=== PATIENT | male | born 1945 | race Caucasian/White ===

== ENCOUNTER 2016-10-22 06:46 | Inpatient (IN) | payer OTHER ==
[~2016-10-22] VITALS: Ht 170.2 cm; Wt 61.2 kg
[~2016-10-22 06:46] MED LIST: AMOXICILLIN250 MG PO
--- NOTE | 2016-10-22 07:02 | ED AMS/SEIZURE/WEAK/DIZZY ---
History of Present Illness General Chief Complaint: Altered Mental Status Stated Complaint: BIBA AMS Source: family, EMS Exam Limitations: clinical condition Vital Signs & Intake/Output Vital Signs & Intake/Output Vital Signs Date Time Temp Pulse Resp B/P Pulse O2 O2 Flow FiO2 Ox Delivery Rate 10/22 0830 97.5 81 20 148/78 99 Room Air 10/22 0658 97.1 79 20 158/71 100 Room Air Allergies Coded Allergies: NO KNOWN ALLERGIES (07/08/15) Reconcile Medications Acyclovir 400 MG TABLET 1 TAB PO BID ANTIVIRAL (Reported) Amlodipine Besylate 10 MG TABLET 1 TAB PO DAILY HEART (Reported) Atenolol 25 MG TABLET 1 TAB PO DAILY HEART (Reported) Fluconazole (Diflucan) 200 MG TABLET 1 TAB PO DAILY ANTIFUNGAL (Reported) Furosemide 20 MG TABLET 1 TAB PO BID WATER PILL (Reported) Lenalidomide (Revlimid) 10 MG CAPSULE 1 CAP PO DAILY Cancer (Reported) Lorazepam (Ativan) 0.5 MG TABLET 1 TAB PO Q8 PRN Agitation Metformin HCl 500 MG TABLET 1 TAB PO BID DIABETES (Reported) Sulfamethoxazole/Trimethoprim (Sulfamethoxazole-Tmp Ds Tablet) 800 MG-160 MG TABLET 1 TAB PO Monday UNKNOWN (Reported) Triage Nurses Notes Reviewed? yes Onset: Gradual Duration: day(s): (5) Timing: recent history Injury Environment: home Severity: severe No Modifying Factors: none Associated Symptoms: UNABLE TO PERFORM ADL'S HPI: This is a 70-year-old male with history of hypertension, multiple myeloma, previous mouth cancer who presents with family from home via EMS for chief complaint of altered mental status. According to the son and he was admitted to the hospital last Monday for very low blood counts and transfusion. He received 2 units of blood. At that time he then developed congestive heart failure and was treated for CHF with diuretics. reports that he had lack of oxygen for a while. He was discharged home on since his discharge home less than 2 days ago there is been an acute change in his mental status. He is unable to take care of himself. He has not been eating and drinking. He is unable to communicate what he normally does. In retrospect the thinks that something slow may have started last week. He was more lethargic than usual which was abnormal for him. No fevers or chills. No vomiting or diarrhea. No rashes. No change in his previous medications but he was started on a diuretic at discharge. Past History Travel History Traveled to [place] past 21 day No Medical History Any Pertinent Medical History? see below for history Cardiovascular: hypertension Blood Disorders: multiple myeloma Surgical History Surgical History: he had removal of part of the upper jaw on the rightdue to malignancy Psychosocial History What is your primary language Bahraini Family History Hx Contributory? No Review of Systems Review of Systems Constitutional: Reports: malaise, weakness. EENTM: Reports: no symptoms. Respiratory: Denies: cough, short of breath. Cardiovascular: Denies: chest pain, palpitations. GI: Denies: abdominal pain. Genitourinary: Reports: no symptoms. Musculoskeletal: Reports: no symptoms. Skin: Reports: no symptoms. Neurological/Psychological: Reports: no symptoms. Hematologic/Endocrine: Denies: bruising, bleeding, polyuria, polydipsia. Immunologic/Allergic: Denies: splenectomy. All Other Systems: Reviewed and Negative Physical Exam Physical Exam General Appearance: alert, awake, mild distress, thin Head: atraumatic, normal appearance Eyes: Bilateral: normal appearance, PERRL, EOMI. Ears, Nose, Throat: normal pharynx, hearing grossly normal Neck: normal inspection, supple, full range of motion Respiratory: normal breath sounds, chest non-tender, no respiratory distress Cardiovascular: regular rate/rhythm Peripheral Pulses: 2+ radial (R), 2+ radial (L) Gastrointestinal: normal bowel sounds, soft, non-tender Extremities: normal range of motion Neurologic/Psych: no motor/sensory deficits, awake, alert, oriented x 3 Core Measures ACS in differential dx? No CVA/TIA Diagnosis: No Severe Sepsis Present: No Septic Shock Present: No Progress Differential Diagnosis: CVA/stroke, hypoglycemia, hypoxia, intracranial Hem., intracranial mass/tumor, sepsis, seizure disorder, METABOLIC ENCEPHALOPATHY Plan of Care: Orders Procedure Date/time Status Heart Healthy Diet 10/22 L Active Patient Data 10/22 1051 Active LACTIC ACID 10/22 1027 Complete MRA-HEAD 10/22 858 Active MRI-HEAD W & W/O BRANDT 10/22 858 Active Admit to inpatient 10/22 847 Active Vital Signs 10/22 0748 Active Code Status 10/22 847 Active PARTIAL THROMBOPLASTIN TIME 10/22 726 Complete PROTHROMBIN TIME 10/22 726 Complete LACTIC ACID 10/22 726 Active URINE DRUGS OF ABUSE 10/22 723 Complete Telemetry/Worm Sorter 10/22 721 Active AMMONIA 10/22 721 Complete URINALYSIS 10/22 700 Complete TROPONIN LEVEL 10/22 700 Complete COMPREHENSIVE METABOLIC PANEL 10/22 700 Complete CBC WITHOUT DIFFERENTIAL 10/22 700 Complete EKG 10/22 700 Active Laboratory Tests 10/22/16 0910: Urine Opiates Screen < 100.00, Methadone Screen < 40, Barbiturate Screen < 60, Ur Phencyclidine Scrn < 6.00, Amphetamines Screen < 100, U Benzodiazepines Scrn < 85, Urine Cocaine Screen < 50, Urine Cannabis Screen < 5.00 10/22/16 0909: Urine Color YEL, Urine Clarity CLEAR, Urine pH 6.0, Ur Specific [place] 1.025, Urine Protein NEG, Urine Ketones TRACE H, Urine Nitrite NEG, Urine Bilirubin NEG, Urine Urobilinogen 0.2, Ur Leukocyte Esterase NEG, Ur Microscopic EXAM NOT REQUIRED, Urine Hemoglobin NEG, Urine Glucose NEG 10/22/16 0808: Lactic Acid 1.0 10/22/16 0808: Ammonia < 9 L, PT 13.7 H, INR 1.31 H, APTT 24 L 10/22/16 0716: Anion Gap 22 H, Estimated GFR > 60, BUN/Creatinine Ratio 52.5 H, Glucose 137 H, Calcium 9.0, Total Bilirubin 0.9, AST 40, ALT 176 H, Alkaline Phosphatase 65 , Troponin I 0.06, Total Protein 8.4 H, Albumin 3.2 L, Globulin 5.2 H, Albumin/Globulin Ratio 0.6 L, CBC w Diff MAN DIFF ORDERED, RBC 2.49 L, MCV 95.4 H, MCH 33.0 H, RDW 23.0 H, MPV 8.3, Gran % 56.1, Lymphocytes % 23.5, Monocytes % 16.5 H, Eosinophils % 3.4, Basophils % 0.5, Absolute Granulocytes 1.0 L, Segmented Neutrophils 55, Band Neutrophils 2, Absolute Lymphocytes 0.4 L, Lymphocytes 33, Monocytes 8, Absolute Monocytes 0.3, Absolute Eosinophils 0.1 , Absolute Basophils 0, Metamyelocytes 2 H, Nucleated RBCs 2 H, Platelet Estimate , Hypochromic-Microcytic 2+, Poikilocytosis 2+, Anisocytosis 1+, PUBS MCHC 34.6 10 AM D/W DR MCKINNEY - WILL CONSULT ON THE PATIENT. (LEONIE MONSIVAIS,VIN) Diagnostic Imaging: Viewed by Me: Radiology Read, CT Scan. Discussed w/RAD: Radiology Read, CT Scan. Radiology Impression: EXAM TYPE: CAT - CT HEAD WO IV CONTRAST EXAMINATION: CT HEAD WITHOUT CONTRAST CLINICAL INFORMATION: Altered mental status COMPARISON: None. TECHNIQUE: Contiguous axial imaging was performed from the skull base to vertex without intravenous administration of contrast. DLP: 529 mGy-cm. FINDINGS : There is no evidence of acute intracranial hemorrhage or territorial infarction. No abnormal mass effect or midline shift is seen. Sherman to white matter differentiation is well preserved. No extra-axial fluid collections are identified. The ventricles are top normal in size. Sulci and cisterns are normal in appearance. There is no abnormal attenuation within the brain parenchyma. The osseous structures and soft tissues are normal. The mastoid air cells and visualized portions of the paranasal sinuses are well aerated. IMPRESSION: No acute intracranial abnormality. CXR Impression: EXAM TYPE: RAD - XRY-PORTABLE CHEST XRAY EXAMINATION: XR PORTABLE CHEST CLINICAL INFORMATION: Question CHF COMPARISON: Chest x-ray from 11/10/2013 TECHNIQUE: Portable view of the chest was obtained. FINDINGS: Heart size is normal. The aorta is normal in caliber and partially calcified. Pulmonary vascularity is normal. The lungs are normally expanded. There is slight increase in opacity at the left lung apex when compared to the previous examination. Some of this is related to overlapping bony structures and calcified costal cartilage. An underlying small area of atelectasis or infiltrate in the left upper lobe would be difficult to exclude. Opacity over the right first costochondral junction is unchanged from prior exam and is likely related to calcified cartilage and overlapping bony structures. No other questionable focal findings are seen in the lungs. There is no pleural effusion or pneumothorax. No acute bony abnormality is seen. IMPRESSION: Normally expanded lungs with no pulmonary edema. Slight increase in opacity at the left lung apex when compared to prior study may be artifactual, related to overlapping bony structures and costal cartilage, but a small infiltrate in the left upper lobe would be difficult to exclude. No other change.. Initial ED EKG: NSR, LVH Rhythm Strip: normal sinus rhythm, SHAKY BASELINE DUE TO FIDGETING Departure Departure Time of Disposition: 0848 Disposition: STILL A PATIENT Condition: Stable Clinical Impression Primary Impression: Altered mental status Referrals: JOSE RAMON MONSIVAIS,AVANI (PCP/Family) Departure Forms: Customer Survey General Discharge Information Prescriptions: Current Visit Scripts Lorazepam (Ativan) 1 TAB PO Q8 PRN Agitation #10 TAB Admission Note Spoke With: YESENIA MONSIVAIS,VICKY Documentation of Exam: Documentation of any treatments & extenuating circumstances including Concerns Regarding Discharge (functional status, medication knowledge or non-compliance, living conditions, etc.) that warrant an admission rather than observation: [ TELE MONITOR, NEURO EVALUATION, MRI HEAD, MRA HEAD, MONITOR I/O, GENTLE IV HYDRATION]
--- NOTE | 2016-10-22 07:04 | NUR ---
PT BIBA FROM HOME C/O AMS CHANGE. PER MEDIC/PTS FAMILY PT WAS D/C'D FROM 2 DAYS AGO WHERE HE WAS ADMITTED FOR CHF AND SOB. PT HAS EXTENSIVE HX OF MYELOMA CA. PT HAS A HEAVY CYPRIOT ACCENT, BUT FAMILY SAYS PTS VOICE IS BASELINE FOR HIM. PTS FAMILY STATED THAT HE WAS CONFUSED AND NORMALLY IS INDEPENDENT AT THE HOUSE AND THE PAST 2 DAYS HAS BEEN DOING THINGS "OUT OF THE ORDINARY SUCH TRYING TO UNZIPPER HIS UNDERWEAR". UPON ARRIVAL PTS VSS RA 100% BP 159/71 AND HR 79. PTS AND SON IN RM STANDING OVER PT IN THE BED WATCHING THE MONITOR IN THE RM. PT HOOKED UP THE MONITOR AND RESPONDED APPRORIATELY TO THIS RN'S QUESTIONS. PT LAYING FIDDLING WITH GOWN, UNABLE TO TRY AND KEEP LEADS ON, THIS RN GAVE PT ANOTHER GOWN TO BUTTON AND UNBUTTON TO DISTRACT THE PT. AWAITING PROVIDER EVAL. MEDIC UNABLE TO GET IV ACCESS. PTS AT BEDSIDE ASKING "SHOULD HE GO TO [place] BECAUSE THATS WHERE HIS ONCOLOGIST IS"
--- NOTE | 2016-10-22 07:19 | NUR ---
ASSUMED CARE OF PT. LBS DRAWN AND SENT. DR HADLEY AT BEDSIDE FOR EVALUATION
[2016-10-22 07:47] LABS: ABSOLUTE BASOPHIL COUNT 0 /CUMM (0.0-0.2); ABSOLUTE EOSINOPHIL COUNT 0.1 /CUMM (0.0-0.7); ABSOLUTE LYMPH COUNT 0.4 /CUMM (1.2-3.4); ABSOLUTE MONOCYTE COUNT 0.3 /CUMM (0.10-0.60); BASOPHIL % 0.5 % (0.0-2.0); EOSINOPHIL % 3.4 % (0-5); GRANULOCYTE % 56.1 % (42.2-75.2); HEMATOCRIT 23.8 % (42-52); MEAN CORPUSCULAR HGB CONC 34.6 G/DL (33.0-37.0); MEAN CORPUSCULAR VOLUME 95.4 FL (80.0-94.0); MEAN PLATELET VOLUME 8.3 FL (7.4-10.4); RED BLOOD CELL CT 2.49 /CUMM (4.70-6.10); WHITE BLOOD CELL COUNT 1.7 /CUMM (4.8-10.8)
--- NOTE | 2016-10-22 07:48 | NUR ---
PT TO CT SCAN AND XRAY
[2016-10-22] MEDS ORDERED: FUROSEMIDE20 M1 PO (08:04)
[2016-10-22 08:05] LABS: PLATELET COUNT 32 /CUMM (130-400)
[2016-10-22] MEDS ORDERED: REVLIMID10 M1 PO (08:05)
[2016-10-22] MEDS ORDERED: ATENOLOL25 M1 PO (08:06)
[2016-10-22] MEDS ORDERED: AMLODIPINE BESY10 M1 PO (08:06)
[2016-10-22] MEDS ORDERED: SULFAMETHOXAZO1 EAC1 PO (08:07)
[2016-10-22] MEDS ORDERED: ACYCLOVIR400 M1 PO (08:08)
[2016-10-22] MEDS ORDERED: METFORMIN HCL500 M3 PO (08:08)
[2016-10-22] MEDS ORDERED: DIFLUCAN200 M1 PO (08:08)
--- NOTE | 2016-10-22 08:12 | CT SCAN REPORT ---
EXAMINATION: CT HEAD WITHOUT CONTRAST CLINICAL INFORMATION: Altered mental status COMPARISON: None. TECHNIQUE: Contiguous axial imaging was performed from the skull base to vertex without intravenous administration of contrast. DLP: 529 mGy-cm. FINDINGS: There is no evidence of acute intracranial hemorrhage or territorial infarction. No abnormal mass effect or midline shift is seen. Sherman to white matter differentiation is well preserved. No extra-axial fluid collections are identified. The ventricles are top normal in size. Sulci and cisterns are normal in appearance. There is no abnormal attenuation within the brain parenchyma. The osseous structures and soft tissues are normal. The mastoid air cells and visualized portions of the paranasal sinuses are well aerated. IMPRESSION: No acute intracranial abnormality.
--- NOTE | 2016-10-22 08:17 | NUR ---
NS INFUSING. PT CONTINUES TO FIDGIT. GIVEN A GOWN WITH SNAPS TO DISTRACT
[2016-10-22 08:27] LABS: PT 13.7 SEC (9.4-12.5); PTT 24 SEC (25-37)
--- NOTE | 2016-10-22 08:40 | RADIOLOGY REPORT ---
EXAMINATION: XR PORTABLE CHEST CLINICAL INFORMATION: Question CHF COMPARISON: Chest x-ray from 11/10/2013 TECHNIQUE: Portable view of the chest was obtained. FINDINGS: Heart size is normal. The aorta is normal in caliber and partially calcified. Pulmonary vascularity is normal. The lungs are normally expanded. There is slight increase in opacity at the left lung apex when compared to the previous examination. Some of this is related to overlapping bony structures and calcified costal cartilage. An underlying small area of atelectasis or infiltrate in the left upper lobe would be difficult to exclude. Opacity over the right first costochondral junction is unchanged from prior exam and is likely related to calcified cartilage and overlapping bony structures. No other questionable focal findings are seen in the lungs. There is no pleural effusion or pneumothorax. No acute bony abnormality is seen. IMPRESSION: Normally expanded lungs with no pulmonary edema. Slight increase in opacity at the left lung apex when compared to prior study may be artifactual, related to overlapping bony structures and costal cartilage, but a small infiltrate in the left upper lobe would be difficult to exclude. No other change..
--- NOTE | 2016-10-22 09:10 | NUR ---
URINE SPECIMEN SENT TO LAB
--- NOTE | 2016-10-22 09:39 | NUR ---
NS INFUSING AT 150/HR
--- NOTE | 2016-10-22 10:35 | NUR ---
TELE RESIDENT AT BEDSIDE FOR EVALUATION
--- NOTE | 2016-10-22 10:58 | NUR ---
PATIENT ASSIGNED TO TELE BED [id number]
--- NOTE | 2016-10-22 11:01 | NUR ---
ATIVAN ADMINISTERED ORDERED.
--- NOTE | 2016-10-22 11:25 | NUR ---
PT TO MRI
--- NOTE | 2016-10-22 11:37 | History & Physical ---
SCOTT MONSIVAIS,[facility] 10/22/16 1104: General Information and HPI MD Statement: I have seen and personally examined MAT CARRENO and documented this H&P. The patient is a 70 year old M who presented with a patient stated chief complaint of [Confusion]. Source of Information: patient, family, old records Exam Limitations: clinical condition, confusion History of Present Illness: Patient is a 70-year-old man with a past medical history of hypertension, ? steroid induced diabetes, multiple myeloma initially diagnosed in 2011 and treated with multiple chemotherapeutic agents status post-autologous stem cell transplant in 08/2012, now on DARLYN (Cyclophosphamide, etoposide, dexamethasone) chemotherapy C1D12 on XAVIER CD22 plus rev 10 mg. His oncologist is Dr. George at [facility]. He presents with lethargy of 12 days duration and confusion 4 days duration. His symptoms started 12 days ago when he was noted to be progressively lethargic. He was found to be anemic and hypoxemic and desaturated to the 70s when he presented to his oncologist for chemotherapy 4 days ago. On account of this he was transferred to [facility] emergency department where he was admitted and transfused with 2 units of blood. He was found to be in congestive heart failure with bilateral pulmonary edema and he was diuresed. Echocardiogram done showed ejection fraction of 60-65% with moderate diastolic dysfunction. However his confusion started 4 days ago during his [facility] admission and gradually worsened after his discharge 2 days ago (, ). Now his family states that he is very confused as evidenced by his behaviours. Overnight he was opening all the drawers in his house and wandering around his house. He also tried to put his glasses into his wallet. He is speaking minimally and not able to carry on conversations as he normally does. He also is unable to operate his computer. However, he does not have slurred speech. He denies headaches, weakness of any part of his body or any facial asymmetry. He denies fevers, chills, dysuria. He has not been eating or drinking much over the last 24 hours. He denies diarrhea. Allergies/Medications Allergies: Coded Allergies: NO KNOWN ALLERGIES (07/08/15) Home Med list Acyclovir 400 MG TABLET 1 TAB PO BID ANTIVIRAL (Reported) Amlodipine Besylate 10 MG TABLET 1 TAB PO DAILY HEART (Reported) Atenolol 25 MG TABLET 1 TAB PO DAILY HEART (Reported) Fluconazole (Diflucan) 200 MG TABLET 1 TAB PO DAILY ANTIFUNGAL (Reported) Furosemide 20 MG TABLET 1 TAB PO QPM WATER PILL (Reported) Lenalidomide (Revlimid) 10 MG CAPSULE 1 CAP PO DAILY UNKNOWN (Reported) Metformin HCl 500 MG TABLET 1 TAB PO BID DIABETES (Reported) Sulfamethoxazole/Trimethoprim (Sulfamethoxazole-Tmp Ds Tablet) 800 MG-160 MG TABLET 1 TAB PO Monday UNKNOWN (Reported) Past History Travel History Traveled to [place] past 21 day No Medical History Cardiovascular: hypertension Endocrine: diabetes Blood Disorders: multiple myeloma Surgical History Surgical History: he had removal of part of the upper jaw on the rightdue to malignancy Past Family/Social History Family History Relations & Conditions if any SISTER FHx: heart disease Psychosocial History Where do you live? Home Smoking Status: Former Smoker ETOH Use: denies use Illicit Drug Use: denies illicit drug use Functional Ability ADLs Independent: dressing, eating, toileting, bathing. Review of Systems Review of Systems Constitutional: Reports: see HPI. Denies: chills, fever, malaise. Exam & Diagnostic Data Last 24 Hrs of Vital Signs/I&O Vital Signs Date Time Temp Pulse Resp B/P Pulse O2 O2 Flow FiO2 Ox Delivery Rate 10/22 0830 97.5 81 20 148/78 99 Room Air 10/22 0658 97.1 79 20 158/71 100 Room Air Intake & Output 10/22 1600 10/22 0800 10/22 0000 Intake Total 500 Output Total 150 Balance 350 Intake, IV 500 Output, Urine 150 Patient 120 lb Weight Physical Exam General Appearance Alert, No Acute Distress, oriented to person but not to time or place Skin No Rashes, No Breakdown HEENT PERRLA, EOMI Neck Supple, No JVD Lymphatic Cervical nl Cardiovascular Regular Rate, Normal S1, Normal S2, No Murmurs Lungs Clear to Auscultation, Normal Air Movement Abdomen Normal Bowel Sounds, Soft, No Tenderness, No Hepatospenomegaly Neurological Normal Gait, Normal Speech, Strength at 5/5 X4 Ext, Normal Tone, Sensation Intact, Cranial Nerves 3-12 NL, Reflexes 2+, Neck supple. Extremities +1 pedal edema Vascular Normal Pulses Last 24 Hrs of Labs/Uriah: Laboratory Tests 10/22/16 0910: Urine Opiates Screen < 100.00, Methadone Screen < 40, Barbiturate Screen < 60, Ur Phencyclidine Scrn < 6.00, Amphetamines Screen < 100, U Benzodiazepines Scrn < 85, Urine Cocaine Screen < 50, Urine Cannabis Screen < 5.00 10/22/16 0909: Urine Color YEL, Urine Clarity CLEAR, Urine pH 6.0, Ur Specific Bennett 1.025, Urine Protein NEG, Urine Ketones TRACE H, Urine Nitrite NEG, Urine Bilirubin NEG, Urine Urobilinogen 0.2, Ur Leukocyte Esterase NEG, Ur Microscopic EXAM NOT REQUIRED, Urine Hemoglobin NEG, Urine Glucose NEG 10/22/16 0808: Lactic Acid 1.0 10/22/16 0808: Ammonia < 9 L, PT 13.7 H, INR 1.31 H, APTT 24 L 10/22/16 0716: Anion Gap 22 H, Estimated GFR > 60, BUN/Creatinine Ratio 52.5 H, Glucose 137 H, Calcium 9.0, Total Bilirubin 0.9, AST 40, ALT 176 H, Alkaline Phosphatase 65 , Troponin I 0.06, Total Protein 8.4 H, Albumin 3.2 L, Globulin 5.2 H, Albumin/Globulin Ratio 0.6 L, CBC w Diff MAN DIFF ORDERED, RBC 2.49 L, MCV 95.4 H, MCH 33.0 H, RDW 23.0 H, MPV 8.3, Gran % 56.1, Lymphocytes % 23.5, Monocytes % 16.5 H, Eosinophils % 3.4, Basophils % 0.5, Absolute Granulocytes 1.0 L, Segmented Neutrophils 55, Band Neutrophils 2, Absolute Lymphocytes 0.4 L, Lymphocytes 33, Monocytes 8, Absolute Monocytes 0.3, Absolute Eosinophils 0.1 , Absolute Basophils 0, Metamyelocytes 2 H, Nucleated RBCs 2 H, Platelet Estimate , Hypochromic-Microcytic 2+, Poikilocytosis 2+, Anisocytosis 1+, PUBS MCHC 34.6 Diagnostic Data EKG Results HR 74 bpm, QTC 520, LVH CXR Results Normally expanded lungs with no pulmonary edema. 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 He has a prior history of mild confusion over the past year which was attributed to his chemotherapy regimen. But his current symptoms are concerning for a hypoxic, or metabolic encephalopathy, or delirium related to his recent [facility] admission. Due to his immunosuppression, encephalitis from HSV is also a possibility as he is unlikely to manifest high fevers or a white count. However, as he is on a prophylactic antibiotic regimen (Acyclovir, fluconazole and bactrim) , a subtle intracranial infarct or stroke is more likely and will need to be ruled out. His hemoglobin is 8.2 which is stable and improved when compared to 5.7 from 4 days ago. His ANC is 1000 but he is afebrile. His chemistries unremarkable and is ALT of 176 is down trending from 258 4 days ago. His urinalysis is benign. And a toxicology screen is negative. EKG showed left ventricular hypertrophy and prolonged QTC but no other abnormalities. His current head CT head is negative any hemorrhage or lesion. Of note, echocardiogram done on his admission at [facility] showed EF of 60-65% with moderate diastolic dysfunction. He will be admitted and hydrated as he is not taking fluid or food adequately orally. Neurology consult will be obtained and he will be monitored on telemetry. Problem list 1. Altered mental status ? Metabolic vs delirum vs subtle cerebral infarct * Admit to telemetry * Patient passed a bedside swallow evaluation * MRI brain and MRA head to investigate subtle infarct or intracranial lesion * Neurology consult * If MRI and MRA are unrevealing may consider lumbar puncture and CSF analkysis/ viral studies to rule out encephalitis * IV normal saline at 75cc/hr * Melatonin 5 mg at bedtime for sleep * IM haldol 0.5 mg Q12 hrs PRN for agitation * Avoid NSAIDS due to low platelets of 32,000 * Fasting lipid panel * PT consult tomorrow AM 2. Neutropenia secondary to multiple myeloma * As patient is currently afebrile, we will monitor vital signs closely for fevers * Monitor CBC daily * Blood culture X2 * Will hold his multiple myeloma medications for now * Continue prophylactic antibiotic regimen-Acyclovir, fluconazole and bactrim 3. Anemia * Monitor CBC daily 4. Diabetes Mellitus * NovoLog sliding scale low-dose 3 times a day before meals * Accu-Cheks 3 times a day before meals 5. Recent history of congestive heart failure * Will monitor on telemetry * Hydrate gently and monitor vital signs and oxygen saturations closely * Once he is eating adequately can discontinue IV fluids * Continue PO lasix 20 mg QPM 6. DVT prophylaxis * Subcutaneous Lovenox 40 mg daily 7. CODE STATUS * full code As Ranked By This Provider Problem List: 1. Altered mental status 2. Multiple myeloma 3. Anemia 4. Diabetes mellitus 5. DVT prophylaxis 6. Full code status Core Measures/Miscellaneous Acute Coronary Syndrome ACS Diagnosis: No Cerebrovascular Accident CVA/TIA Diagnosis: No Congestive Heart Failure CHF Diagnosis: No Venous Thromboembolism VTE Risk Factors: Acute medical illness, Age > 40 VTE Prophylaxis Ordered Inpt: Pharm- Lovenox No Mech VTE prophylaxis d/t: No contraindications No VTE Pharm Prophylaxis d/t: No contraindications VTE Diagnosis: No VTE Type: NONE VTE Confirmed by (Test): NONE Severe Sepsis Severe Sepsis Present: No Septic Shock Septic Shock Present: No Miscellaneous Documentation Attending Case Discussed With: VICKY PATTERSON MD Primary Care Physician: AVANI ALBRIGHT MD Patient sees these Specialists Dr. George, oncology [facility] Level of Patient Care: Telemetry Resident Review Statement Resident Statement: examined this patient, discussed with family VICKY PATTERSON MD 10/22/16 1306: Attending MD Review Statement Attending Statement Attending MD Statement: examined this patient, discuss w/resident/PA/TUGBOAT CAPTAIN, agreed w/resident/PA/TUGBOAT CAPTAIN, discussed with family, reviewed EMR data (avail) Attending Assessment/Plan: Patient seen and examined. Plan of care discussed with the medical team and the patient. Available lab work and radiology test reports were reviewed. 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 Patient was recently discharged from [facility] and since discharge she has been confused and disoriented and was noted to be wandering in the house. Patient cannot do his usual tasks and IADLs. His vitals are stable and he is afebrile. His exam is nonfocal. Chest exam is clear abdomen soft nontender. Abdominal examination patient was sedated due to recent Ativan does. Labs were reviewed. WBC count is 1.6 and hematocrit is 23.8.. Platelets Count is 32. BUN is 63. Ammonia level is less than 9. Toxicology report is negative. CT scan head did not show any acute of normality. Chest x-ray no pulmonary edema but slight increase in opacity at the left lung apex. MRI report is currently pending. Assessment problem list * Acute confusion state/delirium acute/toxic metabolic encephalopathy * History of advanced myeloma * Chronic anemia likely due to multiple myeloma * Dehydration * Recent history of pulmonary edema Plan * Admit to telemetry * Follow-up MRI report * Supportive care for acute delirium * Can use Haldol 0.5 mg orally patient is awake every 8 hours for acute agitation; can use 0.5 mg IM Haldol if needed * Avoid narcotics and benzodiazepines * Use melatonin at night for sleep * Frequent reorientation * Obtain old records from [facility] * Plan was discussed with the son and patient's
--- NOTE | 2016-10-22 12:17 | NUR ---
REPORT GIVEN TO FLOOR RN.
--- NOTE | 2016-10-22 12:30 | NUR ---
PT NOW BACK FROM MRI. PENDING TRANSPORT DEPARTMENT
--- NOTE | 2016-10-22 15:34 | MRI REPORT ---
EXAMINATION: MR BRAIN WITHOUT AND WITH CONTRAST MR ANGIOGRAPHY HEAD WITHOUT CONTRAST CLINICAL INFORMATION: Altered mental status. COMPARISON: Head CT from 7:22 AM on 10/22/2016. TECHNIQUE: Multiplanar, multisequence imaging of the brain was obtained without and with intravenous administration of contrast. 3-D [id number] MR angiography is performed. Multiple 3-D reformatted images are processed on the technologist workstation. Intravenous contrast: OptiMARK 11 mL. FINDINGS: No diffusion abnormalities are identified to suggest an acute infarct. The ventricles are normal in size. No mass effect or midline shift is seen. No brain parenchymal signal abnormality is noted. A subcentimeter focus of susceptibility artifact in the posterior left parietal subcortical white matter is nonspecific and may be due to mineralization or a small cavernoma. No extra-axial fluid collections are seen. The brainstem and cerebellum are normal. On postcontrast imaging, there is no abnormal parenchymal or leptomeningeal enhancement. The craniovertebral junction and midline structures are normal. The marrow signal is heterogeneous and the imaged upper cervical vertebra. The major intracranial flow voids at the level of the [place] are preserved. The dural venous sinus flow voids are maintained. Patchy fluid signal is noted in the mastoid air cells. Chronic maxillary sinus disease and atelectasis are visible with sclerotic wall changes; query for history of prior surgery. There is mild to moderate mucosal thickening in the ethmoid sinuses. MRA of the [place] demonstrates a normal caliber to the anterior and posterior circulation vasculature. No stenoses or occlusions are seen. No vascular malformation or aneurysms are identified. IMPRESSION: No acute intracranial process. No acute infarct. Nonspecific heterogeneous marrow signal in the upper cervical vertebra. Chronic bilateral maxillary sinus disease. Mild amount of fluid in the mastoid air cells bilaterally. Normal MRA of the head.
--- NOTE | 2016-10-22 16:30 | Cons- Neurology ---
General Information and HPI Consulting Request Date of Consult: 10/22/16 Requested By: YESENIA MONSIVAIS,VICKY Reason for Consult: Confusion Source of Information: family, old records Exam Limitations: unable to give history, clinical condition, confusion, intoxication History of Present Illness: This is a 70 year old right handed man with Multiple Myeloma on iimmunosuppresive medications who was brought to [facility] due to confusion and trouble with performing basic activities of daily living x 2 days. Per his and son, he has been independent all along and till this last Monday was driving a car and administering his own meds. He then took a turn two days ago not being able to do basic stuff and seeming utterly confused. He was also admitted to last week after being found to be profoundly anemic ( Hb 2). He had concomitant fevers, and was found to be in CHF with secondary pulmonary edema. He was admitted and treated with Lasix for this over two days. He then did better and was therefore discharged home. Upon arriving home he then seemed to start to deteriorate. Of note is that the patient is currently neutropenic. Allergies/Medications Allergies: Coded Allergies: NO KNOWN ALLERGIES (07/08/15) Home Med List: Acyclovir 400 MG TABLET 1 TAB PO BID ANTIVIRAL (Reported) Amlodipine Besylate 10 MG TABLET 1 TAB PO DAILY HEART (Reported) Atenolol 25 MG TABLET 1 TAB PO DAILY HEART (Reported) Fluconazole (Diflucan) 200 MG TABLET 1 TAB PO DAILY ANTIFUNGAL (Reported) Furosemide 20 MG TABLET 1 TAB PO QPM WATER PILL (Reported) Lenalidomide (Revlimid) 10 MG CAPSULE 1 CAP PO DAILY UNKNOWN (Reported) Metformin HCl 500 MG TABLET 1 TAB PO BID DIABETES (Reported) Sulfamethoxazole/Trimethoprim (Sulfamethoxazole-Tmp Ds Tablet) 800 MG-160 MG TABLET 1 TAB PO Monday UNKNOWN (Reported) Current Medications: Current Medications Sig/Yony Start time Last Medication Dose Route Stop Time Status Admin Acetaminophen 650 MG Q6 PRN 10/22 1200 AC PO Acyclovir 400 MG BID 10/22 1145 AC 10/22 PO 10/23 1144 1506 Amlodipine Besylate 10 MG DAILY 10/22 1141 AC 10/22 PO 1506 Atenolol 25 MG DAILY 10/22 1141 AC 10/22 PO 1506 Enoxaparin Sodium 40 MG DAILY 10/22 1153 AC 10/22 SC 1508 Fluconazole 200 MG DAILY 10/22 1200 AC 10/22 PO 10/23 1159 1505 Furosemide 20 MG QPM 10/22 2200 AC PO Haloperidol 0.5 MG Q12P PRN 10/22 1300 AC IM Insulin Aspart 0 TIDAC 10/22 1200 AC SC Lorazepam 1 MG ONCE ONE 10/22 1100 DC 10/22 IV 10/22 1101 1101 Lorazepam 0 .STK-MED ONE 10/22 1054 DC .ROUTE Melatonin 5 MG AT BEDTIME 10/22 2200 AC PO Morphine Sulfate 2 MG Q4P PRN 10/22 1200 AC IV Oxycodone HCl 5 MG Q6 10/22 1200 AC PO Patient Medication 1 UNIT ONE NR 10/22 1315 [place] Teaching ED 10/22 1330 Patient Medication 1 UNIT ONE NR 10/22 1315 [facility] ED 10/22 1330 Patient Medication 1 UNIT ONE NR 10/22 1315 [facility] ED 10/22 1330 Patient Medication 1 UNIT ONE NR 10/22 1315 [facility] ED 10/22 1330 Patient Medication 1 UNIT ONE NR 10/22 1315 [facility] ED 10/22 1330 Senna/Docusate Sodium 1 TAB AT BEDTIME PRN 10/22 1200 AC PO Sodium Chloride 1,000 ML Q13H 10/22 1300 AC 10/22 IV 1515 Sodium Chloride 1,000 ML ONCE ONE 10/22 0930 DC 10/22 IV 10/22 1609 0939 Sodium Chloride 500 ML BOLUS ONE 10/22 0800 DC 10/22 IV 10/22 0859 0816 Trimethoprim/ 1 TAB 10/24 1000 AC Sulfamethoxazole PO 10/25 0959 Review of Systems Review of Systems: As per HPI. Past History Travel History Traveled to [place] past 21 day No Medical History Blood Transfusion Hx: Yes Neurological: NONE EENT: NONE Cardiovascular: CHF, hypertension Respiratory: pulmonary edema Gastrointestinal: NONE Hepatic: NONE Renal: NONE Musculoskeletal: NONE Psychiatric: NONE Endocrine: NONE Blood Disorders: multiple myeloma Cancer(s): NONE WINDOWS SERVER ADMINISTRATOR/Reproductive: NONE Surgical History Surgical History: he had removal of part of the upper jaw on the rightdue to malignancy Family History Relations & Conditions If Any: SISTER FHx: heart disease Psychosocial History Where Do You Live? Home Smoking Status: Former Smoker ETOH Use: denies use Illicit Drug Use: denies illicit drug use Functional Ability ADLs Independent: dressing, eating, toileting, bathing. Exam & Diagnostic Data Vital Signs and I&O Vital Signs Date Time Temp Pulse Resp B/P Pulse O2 O2 Flow FiO2 Ox Delivery Rate 10/22 1506 80 142/77 10/22 1506 80 142/77 10/22 1230 98.1 80 18 142/77 98 Room Air 10/22 0830 97.5 81 20 148/78 99 Room Air 10/22 0658 97.1 79 20 158/71 100 Room Air Intake & Output 10/22 1600 10/22 0800 10/22 0000 Intake Total 500 Output Total 150 Balance 350 Intake, IV 500 Output, Urine 150 Patient 120 lb Weight Physical Exam: Limited. The patient was just given Ativan prior to his MRI. He is hypersomnolent. Resisting eyeopening nad not responding to my call. Sleeping in a curled up position. Seems very stiff with a stiff neck. Extension and flexion of the neck seems to cause him discomfort. Withdraws to scraping of his feet during Babinski equally on both sides. AUDI. Last 48 Hours of Lab Results: Laboratory Tests 10/22 10/22 10/22 0910 0909 0808 Chemistry Lactic Acid (0.7 - 2.1 mmol/L) 1.0 Toxicology Urine Opiates Screen (>2000 NG/ML) < 100.00 Methadone Screen (>300 NG/ML) < 40 Barbiturate Screen (>200 NG/ML) < 60 Ur Phencyclidine Scrn (>25 NG/ML) < 6.00 Amphetamines Screen (>1000 NG/ML) < 100 U Benzodiazepines Scrn (>200 NG/ML) < 85 Urine Cocaine Screen (>300 NG/ML) < 50 Urine Cannabis Screen (>50 NG/ML) < 5.00 Urines Urine Color (YEL,AMB,STR) YEL Urine Clarity (CLEAR) CLEAR Urine pH (5.0 - 8.0) 6.0 Ur Specific [place] (1.001 - 1.035) 1.025 Urine Protein (NEG,<30 MG/DL) NEG Urine Ketones (NEG) TRACE H Urine Nitrite (NEG) NEG Urine Bilirubin (NEG) NEG Urine Urobilinogen (0.1 - 1.0 EU/dl) 0.2 Ur Leukocyte Esterase (NEG) NEG Ur Microscopic EXAM NOT REQUIRED Urine Hemoglobin (NEG) NEG Urine Glucose (N MG/DL) NEG 10/22 10/22 10/22 0881 2679 3279 Chemistry Sodium (137 - 145 mmol/L) 143 Potassium (3.5 - 5.1 mmol/L) 3.5 Chloride (98 - 107 mmol/L) 99 Carbon Dioxide (22 - 30 mmol/L) 23 Anion Gap (5 - 16) 22 H BUN (9 - 20 mg/dL) 63 H Creatinine (0.7 - 1.2 mg/dL) 1.2 Estimated GFR (>60 ml/min) > 60 BUN/Creatinine Ratio (7 - 25 %) 52.5 H Glucose (65 - 99 mg/dL) 137 H Lactic Acid Cancelled Calcium (8.4 - 10.2 mg/dL) 9.0 Total Bilirubin (0.2 - 1.3 mg/dL) 0.9 AST (17 - 59 U/L) 40 ALT (21 - 72 U/L) 176 H Alkaline Phosphatase (< 127 U/L) 65 Ammonia (9 - 30 umol/L) < 9 L Troponin I (<0.11 ng/ml) 0.06 Total Protein (6.3 - 8.2 g/dL) 8.4 H Albumin (3.5 - 5.0 g/dL) 3.2 L Globulin (1.9 - 4.2 gm/dL) 5.2 H Albumin/Globulin Ratio (1.1 - 2.2 %) 0.6 L Triglycerides (<150 mg/dL) 101 Cholesterol (< 200 MG/DL) 105 LDL Cholesterol, Calc (65 - 129 MG/DL) 60 L HDL Cholesterol (40 - 60 mg/dL) 25 L Cholesterol/HDL Ratio (0.00 - 4.88 %) 4.2 Vitamin B12 (239 - 931 pg/mL) > 1000 H TSH (0.270 - 4.200 uIU/mL) 1.070 Coagulation PT (9.4 - 12.5 SEC) 13.7 H INR (0.90 - 1.17) 1.31 H APTT (25 - 37 SEC) 24 L Hematology CBC w Diff MAN DIFF ORDERED WBC (4.8 - 10.8 /CUMM) 1.7 L RBC (4.70 - 6.10 /CUMM) 2.49 L Hgb (14.0 - 18.0 G/DL) 8.2 L Hct (42 - 52 %) 23.8 L MCV (80.0 - 94.0 FL) 95.4 H MCH (27.0 - 31.0 PG) 33.0 H RDW (11.5 - 14.5 %) 23.0 H Plt Count (130 - 400 /CUMM) 32 L MPV (7.4 - 10.4 FL) 8.3 Gran % (42.2 - 75.2 %) 56.1 Lymphocytes % (20.5 - 51.1 %) 23.5 Monocytes % (1.7 - 9.3 %) 16.5 H Eosinophils % (0 - 5 %) 3.4 Basophils % (0.0 - 2.0 %) 0.5 Absolute Granulocytes (1.4 - 6.5 /CUMM) 1.0 L Segmented Neutrophils (42.2 - 75.2 %) 55 Band Neutrophils (0.0 - 5.0 %) 2 Absolute Lymphocytes (1.2 - 3.4 /CUMM) 0.4 L Lymphocytes (20.5 - 51.1 %) 33 Monocytes (1.7 - 9.3 %) 8 Absolute Monocytes (0.10 - 0.60 /CUMM) 0.3 Absolute Eosinophils (0.0 - 0.7 /CUMM) 0.1 Absolute Basophils (0.0 - 0.2 /CUMM) 0 Metamyelocytes (0.0 - 1.0 %) 2 H Nucleated RBCs (0.0 - 0.0 /100WBC) 2 H Platelet Estimate (ADEQUATE) Hypochromic-Microcytic 2+ Poikilocytosis 2+ Anisocytosis 1+ PUBS MCHC (33.0 - 37.0 G/DL) 34.6 Imaging/Other Studies: MRI brain: TECHNIQUE: Multiplanar, multisequence imaging of the brain was obtained without and with intravenous administration of contrast. 3-D [id number] MR angiography is performed. Multiple 3-D reformatted images are processed on the technologist workstation. Intravenous contrast: OptiMARK 11 mL. FINDINGS: No diffusion abnormalities are identified to suggest an acute infarct. The ventricles are normal in size. No mass effect or midline shift is seen. No brain parenchymal signal abnormality is noted. A subcentimeter focus of susceptibility artifact in the posterior left parietal subcortical white matter is nonspecific and may be due to mineralization or a small cavernoma. No extra-axial fluid collections are seen. The brainstem and cerebellum are normal. On postcontrast imaging, there is no abnormal parenchymal or leptomeningeal enhancement. The craniovertebral junction and midline structures are normal. The marrow signal is heterogeneous and the imaged upper cervical vertebra. The major intracranial flow voids at the level of the [place] are preserved. The dural venous sinus flow voids are maintained. Patchy fluid signal is noted in the mastoid air cells. Chronic maxillary sinus disease and atelectasis are visible with sclerotic wall changes; query for history of prior surgery. There is mild to moderate mucosal thickening in the ethmoid sinuses. MRA of the [place] demonstrates a normal caliber to the anterior and posterior circulation vasculature. No stenoses or occlusions are seen. No vascular malformation or aneurysms are identified. IMPRESSION: No acute intracranial process. No acute infarct. Nonspecific heterogeneous marrow signal in the upper cervical vertebra. Chronic bilateral maxillary sinus disease. Mild amount of fluid in the mastoid air cells bilaterally. Normal MRA of the head. Assessment/Plan Assessment: 70 year old man with MM on immunosuppresant medication, now Neutropenic with change in MS suggestive of Encephaloapathy. MRI brain is normal. His neck is somewhat stiff and the possibility of meningitis should be considered if not better by tomorrow. It is possible that he cannot mount an immune response and he is prone to nosacomial and opportunistic infections just coming out of a hospital admission. He is also on opiates that may be the cause of his encephalopathy. Recommendations: 1. Stop ALL opiates and any potentially sedating medications. 2. Monitor for fever. Draw blood cultures. Check UA and CXR. 3. If not clearing up by tomorrow may require tap. 4. If not better by Monday order EEG. Consult Acknowledgment - Thank you for your consult request.
[2016-10-22 16:50] VITALS: BP 126/62
[2016-10-23 00:42] VITALS: BP 132/60
[2016-10-23 07:57] VITALS: BP 118/58
[2016-10-23 08:37] LABS: ABSOLUTE BASOPHIL COUNT 0 /CUMM (0.0-0.2); ABSOLUTE EOSINOPHIL COUNT 0.1 /CUMM (0.0-0.7); BASOPHIL % 0 % (0.0-2.0)
[2016-10-23 08:48] LABS: ABSOLUTE GRANULOCYTE CT 1.3 /CUMM (1.4-6.5); ABSOLUTE LYMPH COUNT 0.3 /CUMM (1.2-3.4); ABSOLUTE MONOCYTE COUNT 0.3 /CUMM (0.10-0.60); EOSINOPHIL % 3.7 % (0-5); GRANULOCYTE % 64.8 % (42.2-75.2); HEMATOCRIT 22.2 % (42-52); MEAN CORPUSCULAR HGB 32.8 PG (27.0-31.0); MEAN CORPUSCULAR HGB CONC 34.3 G/DL (33.0-37.0); MEAN CORPUSCULAR VOLUME 95.6 FL (80.0-94.0); MEAN PLATELET VOLUME 8.8 FL (7.4-10.4); RBC DISTRIBUTION WIDTH 22.5 % (11.5-14.5); RED BLOOD CELL CT 2.33 /CUMM (4.70-6.10); WHITE BLOOD CELL COUNT 1.9 /CUMM (4.8-10.8)
[2016-10-23 09:37] LABS: PLATELET COUNT 22 /CUMM (130-400)
--- NOTE | 2016-10-23 12:18 | PN- Att Addend ---
Attending Addendum Attending Brief Note Patient seen and examined. Plan of care discussed with the medical team and the patient. Available lab work and radiology test reports were reviewed. Patient today is awake alert partially oriented. He is able to follow command and does not appear to be in any acute distress. Vital Signs Date Time Temp Pulse Resp B/P Pulse O2 O2 Flow FiO2 Ox Delivery Rate 10/23 1101 71 142/56 10/23 1058 71 142/56 10/23 0757 98.1 64 18 118/58 99 Room Air 10/23 0042 97.7 57 18 132/60 98 Nasal Cannula 10/22 1650 97.9 58 16 126/62 98 Nasal Cannula 10/22 1506 80 142/77 10/22 1506 80 142/77 10/22 1230 98.1 80 18 142/77 98 Room Air Intake & Output 10/23 1600 10/23 0800 10/23 0000 Intake Total 525 300 Output Total Balance 525 300 Intake, IV 525 Intake, Oral 300 Exam: General: Patient awake alert oriented without any distress CVS: S1 plus S2 without any murmur or gallops Chest: Few scattered crepitation without any wheeze. There is no respiratory distress. Abdomen: Soft nontender, bowel sound present, no guarding or rebound NETWORK OPERATIONS SPECIALIST: Awake alert partially oriented without any focal neuro deficit and follows command appropriately; slight dysarthria is noted likely due to missing teeth Extremities: No edema; no clubbing or cyanosis noted Assessment problem list * Acute confusion state/delirium acute/toxic metabolic encephalopathy- improved * History of advanced myeloma * Chronic anemia likely due to multiple myeloma * Dehydration * Recent history of pulmonary edema * Thrombocytopenia * Neutropenia Plan * Can discontinue telemetry * Supportive care for acute delirium * Can use Haldol 0.5 mg orally patient is awake every 8 hours for acute agitation; can use 0.5 mg IM Haldol if needed * Avoid narcotics and benzodiazepines * Continue melatonin at night for sleep * Frequent reorientation * Obtain old records from [facility] * I doubt central nervous system infection. Will wait for neurology reevaluation to see if patient needs a spinal tap. * Hematology consultation today for thrombocytopenia
[2016-10-23 16:00] VITALS: BP 134/52
--- NOTE | 2016-10-23 20:01 | NUR ---
07:15 PM PT NOTIFIES THIS RN THAT PT HAVING CP /. UPON ASSESSMENT CRACKLES AT BASES OF LUNGS. PT STATES, "IT GETS WORSE WHEN I BREATHE IN." NO SOB. VSS 130/60 99% ON RA, HR 71, RESP 18. DR RDZ NOTIFIED. PLACED ON TELE MONITOR. EKG DONE & LABS SENT. CXR ORDERED. FLUIDS ON HOLD AT THIS TIME. WILL CONTINUE TO MONITOR.
[2016-10-23 22:00] VITALS: BP 130/60
--- NOTE | 2016-10-23 22:18 | RADIOLOGY REPORT ---
EXAMINATION: XR PORTABLE CHEST CLINICAL INFORMATION: Dyspnea and chest pain. COMPARISON: Portable chest x-ray 10/22/2016. TECHNIQUE: Portable view of the chest was obtained. FINDINGS: The lungs are hypoinflated and there is bronchovascular crowding. There are subtle patchy airspace opacities within the right lung base. No pleural effusions or pneumothoraces are identified. Cardiomediastinal contours are stable. Soft tissues are unremarkable. No acute osseous abnormality is identified. IMPRESSION: Pulmonary hypoinflation. Subtle patchy airspace opacities within the right lung base could reflect atelectasis. Developing infection is not excluded in the upper clinical setting. No evidence of congestive heart failure.
[2016-10-24 08:00] LABS: ABSOLUTE BASOPHIL COUNT 0 /CUMM (0.0-0.2); ABSOLUTE EOSINOPHIL COUNT 0.1 /CUMM (0.0-0.7); ABSOLUTE GRANULOCYTE CT 0.8 /CUMM (1.4-6.5); ABSOLUTE LYMPH COUNT 0.5 /CUMM (1.2-3.4); ABSOLUTE MONOCYTE COUNT 0.2 /CUMM (0.10-0.60); BASOPHIL % 0.1 % (0.0-2.0); EOSINOPHIL % 4.5 % (0-5); GRANULOCYTE % 50.8 % (42.2-75.2); MEAN CORPUSCULAR HGB 33.4 PG (27.0-31.0); MEAN CORPUSCULAR HGB CONC 34.8 G/DL (33.0-37.0); MEAN CORPUSCULAR VOLUME 95.9 FL (80.0-94.0); MEAN PLATELET VOLUME 8.5 FL (7.4-10.4); RBC DISTRIBUTION WIDTH 22.6 % (11.5-14.5); RED BLOOD CELL CT 2.14 /CUMM (4.70-6.10); WHITE BLOOD CELL COUNT 1.7 /CUMM (4.8-10.8)
[2016-10-24 08:27] VITALS: BP 150/60
[2016-10-24 08:32] LABS: HEMATOCRIT 20.5 % (42-52)
[2016-10-24 08:56] LABS: PLATELET COUNT 27 /CUMM (130-400)
--- NOTE | 2016-10-24 09:13 | PN- Housestaff ---
LO MAX 10/24/16 0913: Subjective Follow-up For: Altered mental status Subjective: Patient refused to be seen and examined. He was agitated and combative required Haldol, ativan, joaquin, restraints. Review of Systems Constitutional: Denies: see HPI. Objective Last 24 Hrs of Vital Signs/I&O Vital Signs Date Time Temp Pulse Resp B/P Pulse O2 O2 Flow FiO2 Ox Delivery Rate 10/24 1552 98.4 70 18 120/60 93 Room Air 10/24 1524 73 150/60 10/24 1524 73 150/60 10/24 0827 98.3 73 20 150/60 93 Room Air 10/24 0800 93 Room Air Intake & Output 10/24 1600 10/24 0800 10/24 0000 Intake Total 464 100 100 Output Total 300 Balance 464 100 -200 Intake, Blood 420 Product Intake, IV 20 Intake, Oral 24 100 100 Output, Urine 300 Patient 135 lb Weight Physical Exam General Appearance: Refused physical exam, see above Current Medications: Current Medications Sig/Yony Start time Last Medication Dose Route Stop Time Status Admin Acetaminophen 650 MG Q6 PRN 10/22 1200 AC 10/22 PO 2110 Acyclovir 400 MG BID 10/24 2200 DC PO 10/25 2159 Acyclovir 600 MG Q8H 10/24 1645 DC Dextrose/Water 100 ML IV Acyclovir 400 MG BID 10/24 1100 AC 10/24 PO 10/25 1059 2147 Amlodipine Besylate 10 MG DAILY 10/22 1141 AC 10/23 PO 1101 Atenolol 25 MG DAILY 10/22 1141 AC 10/23 PO 1058 Enoxaparin Sodium 40 MG DAILY 10/22 1153 DC 10/23 SC 1104 Fluconazole 200 MG DAILY 10/25 1000 DC PO 10/26 0959 Fluconazole 200 MG DAILY 10/24 1100 AC PO 10/25 1059 Furosemide 20 MG QPM 10/22 2200 AC 10/24 PO 2146 Haloperidol 0.5 MG Q12P PRN 10/22 1300 AC 10/24 IM 0950 Insulin Aspart 0 TIDAC 10/22 1200 AC 10/23 SC 1717 Lidocaine 0 .STK-MED ONE 10/24 1537 DC .ROUTE Lorazepam 1 MG ONCE PRN 10/24 1345 AC 10/24 IV 1523 Lorazepam 0.5 MG Q6-PRN PRN 10/24 1015 AC 10/24 IV 1901 Lorazepam 0.5 MG ONCE ONE 10/24 1000 DC 10/24 IV 10/24 1001 0955 Melatonin 5 MG AT BEDTIME 10/22 2200 AC 10/24 PO 2146 Senna/Docusate Sodium 1 TAB AT BEDTIME PRN 10/22 1200 AC PO Sodium Chloride 1,000 ML Q13H 10/22 1300 AC 10/23 IV 1717 Trimethoprim/ 1 TAB 10/24 1000 AC Sulfamethoxazole PO 10/25 0959 Last 24 Hrs of Lab/Uriah Results Last 24 Hrs of Labs/Mics: Laboratory Tests 10/24/16 1555: CSF VDRL Pending 10/24/16 1555: CSF Glucose 63, CSF Total Protein 40 10/24/16 155: Ref Lab Test Result Pending, Ref Lab Test Result Pending, CSF WBC 0, CSF RBC 0, CSF Comment , Herpes Simplex Source Pending, HSV I DNA PCR Pending, HSV II DNA PCR Pending 10/24/16 0630: Anion Gap 15, Estimated GFR > 60, BUN/Creatinine Ratio 18.8, Magnesium 1.9, CBC w Diff NO MAN DIFF REQ, RBC 2.14 L, MCV 95.9 H, MCH 33.4 H, RDW 22.6 H, MPV 8.5, Gran % 50.8, Lymphocytes % 29.6, Monocytes % 15.0 H, Eosinophils % 4.5, Basophils % 0.1, Absolute Granulocytes 0.8 L, Absolute Lymphocytes 0.5 L, Absolute Monocytes 0.2, Absolute Eosinophils 0.1, Absolute Basophils 0, PUBS MCHC 34.8 Microbiology 10/24 1554 CENT N S: AFB Culture with PCR Identification - RECD 10/24 1554 CENT N S: AFB Smear Concentration - RECD 10/24 1554 CENT N S: Fungal Culture - RECD 10/24 1554 CENT N S: CSF Culture - RES 10/24 1554 CENT N S: Gram Stain - RES Assessment/Plan Assessment: This is a 62-year-old man with past medical history of hypertension,multiple myeloma, hypoxemic respiratory failure(discovered at his oncologist's clinic 4 prior to admission), recent transfusion for anemia Hb of 2, congestive heart failure presented to the hospital with worsening of confusion for 10 days. He is on a prophylactic antibiotic regimen (Acyclovir, fluconazole and bactrim)as outpatient. Follows with oncologist, Dr. George. Problem list/plan: #Altered mental status: * Delirium vs Encephalitis * No possible metabolic causes of AMS noted so far * HSV encephalitis is a concern(immunocompromised patient with change in behavior) * ID consult * LP after receiving PLT * Meanwhile empiric tx for HSV encephalitis * CSF gram stain/Cx, HSV 1,2 PCR, VDRL, Protein, WBC, Glucose, cryptococcal antigen. #Pancytopenia: * WBC 1.7, Hb 7.2, Plt: 27 * most likely 2/2 MM * Monitor closely * records from [facility] reviewed * Hem/onc consult # Diabetes Mellitus * NovoLog sliding scale low-dose 3 times a day before meals * Accu-Cheks 3 times a day before meals #Recent history of congestive heart failure * c/w lasix #DVT prophylaxis * Alps given thrombocytopenia #CODE STATUS * full code Problem List: 1. Multiple myeloma 2. Anemia 3. Altered mental status Pain Ratin Pain Location: na Pain Goal: Remain pain free Pain Plan: NA Tomorrow's Labs & Rationales: cbc; pancytopeni bep monitor electrolytes JOE MONSIVAIS,IRMA 10/24/16 1355: Attending MD Review Statement Attending Statement Attending MD Statement: examined this patient, discuss w/resident/PA/ROLL OVER PRESS OPERATOR, agreed w/resident/PA/ROLL OVER PRESS OPERATOR, discussed with family, reviewed EMR data (avail), discussed with nursing, discussed with case mgmt, reviewed images Attending Assessment/Plan: Pt seen and examined, >30 minutes spent at bedside with pt and pt' son. He is a 70-year-old male with a past medical history of myeloma is last chemotherapy regimen was 3 weeks ago. He follows with Dr. George at [place]. He was at [facility] last week from Monday to where he was treated for a hemoglobin of 2 and congestive heart failure. He was discharged on . As per the family as it is in the hospital his personality was changing and he was getting disgusted and fed up. But on Monday they noticed a marked change in his personality- he was reorganizing things, didn't know how to use his cell phone and they got worried. Although they intended to take him to [facility] ,on the way he was becoming so agitated that they came here to [place]. Since he has been here he's been noted to have an MRI with and without BRANDT that was completely normal, afebrile, hypoinflated chest x-ray with questionable atelectasis and normally BEP with LFTs. He is pancytopenic with anemia and thrombocytopenia. Today early in the morning he became very agitated, very aggressive, requiring security to bring him back, he needed IM Haldol and IV Ativan. All of this was with the son at bedside. And the son confirmed that this is completely different from what he normally is. He calmed down after the Ativan and Haldol, wrist restraints and [place]. And we made him talk to Dr. George himself over the phone. He then agreed to stay. We discussed with ID who is going to see him an official consult. And ID agrees with neurology that he needs an LP to rule out a herpes encephalitis given his change in personality and mentation and the fact that he is immunosuppressed. Dr. George talked to the patient about the need to stay and the need for the LP. I spoke to the interventional radiologist and then later spoke to the joint terminal attack controller on-call Dr. Yanez. The plan is that he is going to get 2 units of platelets. The first unit will be given now and the second unit will be control and recovery special tactics to IR guided LP. He'll get 1 mg of Ativan IV control and recovery special tactics to LP. And we are going to send the LP results for for Gram stain, culture, glucose ,total protein, HSV PCR, cryptococcal antigen, AFB and VDRL. Once he has his LP will start IV acyclovir pending the results. And will closely follow up.
[2016-10-24 15:52] VITALS: BP 120/60
--- NOTE | 2016-10-24 16:35 | INTERVENTIONAL RADIOLOGY RPT ---
EXAMINATION: Lumbar puncture with fluoroscopic guidance CLINICAL INFORMATION: Altered mental status with concern for herpes encephalitis. COMPARISON: None. TECHNIQUE AND FINDINGS: Informed consent was obtained from the patient's prior to the procedure. During this process, the procedure and potential alternatives were explained, along with the intended outcome and benefits. The risks of the procedure, as well as the risks of not doing the procedure, were discussed. The patient's and son were given the opportunity to ask questions regarding the procedure and appeared competent to make medical decisions. A signed consent form which documents this discussion was placed in the medical record. A final timeout procedure was performed. The skin was marked, prepped, draped, and anesthetized. Utilizing C-arm fluoroscopy and sterile technique, a 22-gauge spinal needle was advanced into the spinal canal at the L3-L4 level, utilizing a paramedian interlaminar approach. CSF flowed readily. Opening pressure was not requested by the ordering physician. The CSF was clear and colorless. A total of 12 mL was collected sequentially in the 4 test tubes in the lumbar puncture set and sent for the requested laboratory tests. The stylet was replaced and the needle was removed and a Band-Aid applied. FLUOROSCOPY TIME: 19 seconds. MEDICATION: 5 mL 1% lidocaine subcutaneous. IMPRESSION: Successful fluoroscopic-guided lumbar puncture.
--- NOTE | 2016-10-24 19:08 | Cons- Hematology ---
General Information and HPI Consulting Request Date of Consult: 10/24/16 Requested By: VICKY PATTERSON MD Reason for Consult: AMS, pancytopenia Source of Information: patient, family, old records Exam Limitations: confusion History of Present Illness: Mr. Farrell is a 70-year-old male with multiple myeloma who is current receiving elotuzumab with lenalidomide who presented to the hospital with confusion. He was recently admitted to [facility] from 10/18 to 10/20 for shortness of breath and anemia. His hemoglobin was around 5.7 at that time. He was diagnosed with CHF with pEF. He was given blood transfusion. Since discharge, he continues to be confused. Per his son, the patient was in the ICU and transferred to the floors for 1 day at [facility]. Mr. Farrell started to have some changes in mental status at that time but was not significant. Symptoms worsened over the last few days and subsequently presented to [facility] on 10/22/2015 with progressive confusion and agitation. Since admission, he was evaluated with CT head and MRI head. These were negative for any acute process. His symptoms improved with Haldol the morning after admission. Symptoms worsened again in the evening. Last night he was not able to sleep much. Haldol was held overnight. This morning the patient became more agitated and combative. He has not had any fever or chills. Due to persistent confusion and agitation, there was concerns for meningitis/ encephalitis as patient is neutropenic and on elotuzumab. Patient was given 2 units of platelet transfusion and under LP. This evening, his symptoms improved. His son states Mr. Farrell is back to about 95% of his baseline. He was able to answer most questions. Allergies/Medications Allergies: Coded Allergies: NO KNOWN ALLERGIES (07/08/15) Home Med List: Acyclovir 400 MG TABLET 1 TAB PO BID ANTIVIRAL (Reported) Amlodipine Besylate 10 MG TABLET 1 TAB PO DAILY HEART (Reported) Atenolol 25 MG TABLET 1 TAB PO DAILY HEART (Reported) Fluconazole (Diflucan) 200 MG TABLET 1 TAB PO DAILY ANTIFUNGAL (Reported) Furosemide 20 MG TABLET 1 TAB PO BID WATER PILL (Reported) Lenalidomide (Revlimid) 10 MG CAPSULE 1 CAP PO DAILY Cancer (Reported) Metformin HCl 500 MG TABLET 1 TAB PO BID DIABETES (Reported) Sulfamethoxazole/Trimethoprim (Sulfamethoxazole-Tmp Ds Tablet) 800 MG-160 MG TABLET 1 TAB PO Monday UNKNOWN (Reported) Current Medications: Current Medications Sig/Yony Start time Last Medication Dose Route Stop Time Status Admin Acetaminophen 650 MG Q6 PRN 10/22 1200 AC 10/22 PO 2110 Acyclovir 400 MG BID 10/24 2200 DC PO 10/25 2159 Acyclovir 600 MG Q8H 10/24 1645 AC Dextrose/Water 100 ML IV Acyclovir 400 MG BID 10/24 1100 AC PO 10/25 1059 Amlodipine Besylate 10 MG DAILY 10/22 1141 AC 10/23 PO 1101 Atenolol 25 MG DAILY 10/22 1141 AC 10/23 PO 1058 Enoxaparin Sodium 40 MG DAILY 10/22 1153 DC 10/23 SC 1104 Fluconazole 200 MG DAILY 10/25 1000 DC PO 10/26 0959 Fluconazole 200 MG DAILY 10/24 1100 AC PO 10/25 1059 Furosemide 20 MG QPM 10/22 2200 AC 10/23 PO 2207 Haloperidol 0.5 MG ONCE ONE 10/23 2145 DC IM 10/23 2146 Haloperidol 0.5 MG Q12P PRN 10/22 1300 AC 10/24 IM 0950 Insulin Aspart 0 TIDAC 10/22 1200 AC 10/23 SC 1717 Lidocaine 0 .STK-MED ONE 10/24 1537 DC .ROUTE Lorazepam 1 MG ONCE PRN 10/24 1345 AC 10/24 IV 1523 Lorazepam 0.5 MG Q6-PRN PRN 10/24 1015 AC 10/24 IV 1000 Lorazepam 0.5 MG ONCE ONE 10/24 1000 DC 10/24 IV 10/24 1001 0955 Melatonin 5 MG AT BEDTIME 10/22 2200 AC 10/23 PO 2207 Senna/Docusate Sodium 1 TAB AT BEDTIME PRN 10/22 1200 AC PO Sodium Chloride 1,000 ML Q13H 10/22 1300 AC 10/23 IV 1717 Trimethoprim/ 1 TAB 10/24 1000 AC Sulfamethoxazole PO 10/25 0959 Review of Systems Review of Systems Constitutional: Denies: chills, fever. Cardiovascular: Denies: chest pain. Respiratory: Reports: short of breath. GI: Denies: abdominal pain. Musculoskeletal: Denies: back pain. Neurological/Psychological: Reports: cognitive dysfunction, confusion. Denies: headache, tingling, tremors. Immunologic/Allergic: Denies: lymphadenopathy. All Other Systems: Reviewed and Negative Past History Travel History Traveled to [place] past 21 day No Medical History Blood Transfusion Hx: Yes Neurological: NONE EENT: NONE Cardiovascular: CHF, hypertension Respiratory: pulmonary edema Gastrointestinal: NONE Hepatic: NONE Renal: NONE Musculoskeletal: NONE Psychiatric: NONE Endocrine: NONE Blood Disorders: multiple myeloma Cancer(s): NONE TRUCK CHAUFFEUR/Reproductive: NONE Surgical History Surgical History: he had removal of part of the upper jaw on the rightdue to malignancy Family History Relations & Conditions If Any: SISTER FHx: heart disease Psychosocial History Where Do You Live? Home Smoking Status: Former Smoker ETOH Use: denies use Illicit Drug Use: denies illicit drug use Functional Ability ADLs Independent: dressing, eating, toileting, bathing. Exam & Diagnostic Data Vital Signs and I&O Vital Signs Date Time Temp Pulse Resp B/P Pulse O2 O2 Flow FiO2 Ox Delivery Rate 10/24 1552 98.4 70 18 120/60 93 Room Air 10/24 1524 73 150/60 10/24 1524 73 150/60 10/24 0827 98.3 73 20 150/60 93 Room Air 10/24 0800 93 Room Air 10/23 2200 97.0 71 20 130/60 99 Room Air Intake & Output 10/24 1600 10/24 0800 10/24 0000 Intake Total 464 100 100 Output Total 300 Balance 464 100 -200 Intake, Blood 420 Product Intake, IV 20 Intake, Oral 24 100 100 Output, Urine 300 Patient 61.235 kg Weight Physical Exam General Appearance: alert, awake, comfortable, working on laptop Head: atraumatic Ears, Nose, Throat: normal pharynx Respiratory: chest non-tender, decreased breath sounds on left lower lobe Cardiovascular: regular rate/rhythm Gastrointestinal: normal bowel sounds, soft, non-tender Back: normal inspection Extremities: no edema Neurologic/Psych: awake, alert, oriented x 3 Cranial Nerves: slow speech Skin: normal color Lymphatic: no anterior cervical nj Last 48 Hours of Lab Results: Laboratory Tests 10/24 10/24 10/24 1555 1555 1555 Miscellaneous Ref Lab Test Result Pending Ref Lab Test Result Pending Other Body Source CSF WBC (0 - 5 /CUMM) 0 CSF RBC (-0 /CUMM) 0 CSF Comment CSF Glucose (40 - 70 mg/dL) 63 CSF Total Protein (12 - 60 mg/dL) 40 CSF VDRL Pending Serology Herpes Simplex Source Pending HSV I DNA PCR Pending HSV II DNA PCR Pending 10/24 10/23 0630 1940 Chemistry Sodium (137 - 145 mmol/L) 141 Potassium (3.5 - 5.1 mmol/L) 3.8 Chloride (98 - 107 mmol/L) 98 Carbon Dioxide (22 - 30 mmol/L) 28 Anion Gap (5 - 16) 15 BUN (9 - 20 mg/dL) 15 Creatinine (0.7 - 1.2 mg/dL) 0.8 Estimated GFR (>60 ml/min) > 60 BUN/Creatinine Ratio (7 - 25 %) 18.8 Magnesium (1.6 - 2.3 mg/dL) 1.9 Troponin I (<0.11 ng/ml) 0.02 Hematology CBC w Diff NO MAN DIFF REQ WBC (4.8 - 10.8 /CUMM) 1.7 L RBC (4.70 - 6.10 /CUMM) 2.14 L Hgb (14.0 - 18.0 G/DL) 7.2 *L Hct (42 - 52 %) 20.5 L MCV (80.0 - 94.0 FL) 95.9 H MCH (27.0 - 31.0 PG) 33.4 H RDW (11.5 - 14.5 %) 22.6 H Plt Count (130 - 400 /CUMM) 27 *L MPV (7.4 - 10.4 FL) 8.5 Gran % (42.2 - 75.2 %) 50.8 Lymphocytes % (20.5 - 51.1 %) 29.6 Monocytes % (1.7 - 9.3 %) 15.0 H Eosinophils % (0 - 5 %) 4.5 Basophils % (0.0 - 2.0 %) 0.1 Absolute Granulocytes (1.4 - 6.5 /CUMM) 0.8 L Absolute Lymphocytes (1.2 - 3.4 /CUMM) 0.5 L Absolute Monocytes (0.10 - 0.60 /CUMM) 0.2 Absolute Eosinophils (0.0 - 0.7 /CUMM) 0.1 Absolute Basophils (0.0 - 0.2 /CUMM) 0 PUBS MCHC (33.0 - 37.0 G/DL) 34.8 01/08 0640 Chemistry Sodium (137 - 145 mmol/L) 144 Potassium (3.5 - 5.1 mmol/L) 3.5 Chloride (98 - 107 mmol/L) 101 Carbon Dioxide (22 - 30 mmol/L) 26 Anion Gap (5 - 16) 16 BUN (9 - 20 mg/dL) 21 H Creatinine (0.7 - 1.2 mg/dL) 0.7 Estimated GFR (>60 ml/min) > 60 BUN/Creatinine Ratio (7 - 25 %) 30.0 H Hematology CBC w Diff NO MAN DIFF REQ WBC (4.8 - 10.8 /CUMM) 1.9 L RBC (4.70 - 6.10 /CUMM) 2.33 L Hgb (14.0 - 18.0 G/DL) 7.6 L Hct (42 - 52 %) 22.2 L MCV (80.0 - 94.0 FL) 95.6 H MCH (27.0 - 31.0 PG) 32.8 H RDW (11.5 - 14.5 %) 22.5 H Plt Count (130 - 400 /CUMM) 22 *L MPV (7.4 - 10.4 FL) 8.8 Gran % (42.2 - 75.2 %) 64.8 Lymphocytes % (20.5 - 51.1 %) 17.5 L Monocytes % (1.7 - 9.3 %) 14.0 H Eosinophils % (0 - 5 %) 3.7 Basophils % (0.0 - 2.0 %) 0 L Absolute Granulocytes (1.4 - 6.5 /CUMM) 1.3 L Absolute Lymphocytes (1.2 - 3.4 /CUMM) 0.3 L Absolute Monocytes (0.10 - 0.60 /CUMM) 0.3 Absolute Eosinophils (0.0 - 0.7 /CUMM) 0.1 Absolute Basophils (0.0 - 0.2 /CUMM) 0 PUBS MCHC (33.0 - 37.0 G/DL) 34.3 Imaging/Other Studies: Head MRI/Neck MRA 10/22/2016: No acute intracranial process. No acute infarct. Nonspecific heterogeneous marrow signal in the upper cervical vertebra. Chronic bilateral maxillary sinus disease. Mild amount of fluid in the mastoid air cells bilaterally. Normal MRA of the head. CXR 10/23/2016: Pulmonary hypoinflation. Subtle patchy airspace opacities within the right lung base could reflect atelectasis. Developing infection is not excluded in the upper clinical setting. No evidence of congestive heart failure. Assessment/Plan Assessment: Mr. Farrell is a 70-year-old male with refractory IgA multiple myeloma (2011 ) previously treated with multiple regimen including AutoSCT (08/2012), VRD, Carfilzomib/RD, Alvaro/Barry/Dex, Daratumumab, DARLYN, Panobinostat/Alvaro/Dex, Farydak/ Alvaro/Dex, and now on elotuzumab with lenalidomide (last 10/04/2016) who presented to the hospital with worsening mental status. He is been more agitated and confused. This is worse at night. His sundowning symptoms improved after Haldol on the first night. His symptoms was worse this morning. He has been worked up with imaging studies (MRI brain, MRA neck, CT head) and these were negative. Infectious workup had been negative. Due to chronic neutropenia, there was concern for OPERATIONS MANAGER infection. He was given 2 units of platelet today and underwent LP. Results from this is pending. Neurology and ID are consulted. He has been started empirically on acyclovir and fluconazole. He is normally on acyclovir and Bactrim prophylaxis. Some of his delirium symptoms may also be related to recent ICU and hospitalization and sundowning. Infectious etiology is currently being evaluated. His symptoms are concern for underlying OPERATIONS MANAGER infection. He should continue on his Bactrim prophylaxis. Acyclovir prophylaxis can be discontinued while on therapeutic acyclovir dosing. He should have limited disturbance at night to limit delirium and sundowning. Recommendations: 1. Continue empiric OPERATIONS MANAGER therapy as per ID 2. Follow up LP results 3. Monitor CBC daily 4. Continue Bactrium 5. Platelet transfusion <20,000 if febrile or <10,000 or bleeding Problem List: 1. Multiple myeloma 2. Altered mental status 3. Anemia Other Findings/Comments: Please call [phone] with any questions or concerns Consult Acknowledgment - Thank you for your consult request.
--- NOTE | 2016-10-25 07:37 | PN- Housestaff ---
Subjective Follow-up For: Altered mental status. Tele-Events Since Last Visit: Sinus rhythm, rate 70-74, no events Subjective: Patient seen and examined. Feels much better compared to yesterday. No more episodes of agitation/combative behavior noted. Has one-to-one sitter monitor. Son present at bedside. He denies headache, dizziness, lightheadedness, shortness of breath, nausea, vomiting, chest pain, palpitation, abdominal pain, urinary symptoms. Vital signs remained stable. No overnight events reported. Review of Systems Constitutional: Denies: see HPI. Objective Last 24 Hrs of Vital Signs/I&O Vital Signs Date Time Temp Pulse Resp B/P Pulse O2 O2 Flow FiO2 Ox Delivery Rate 10/25 09 94 146/54 10/25 0911 94 146/54 10/25 0830 98.2 82 20 132/60 96 Room Air Room Air 10/24 1552 98.4 70 18 120/60 93 Room Air 10/24 1524 73 150/60 10/24 1524 73 150/60 Intake & Output 10/25 1600 10/25 0800 10/25 0000 Intake Total 720 1050 Output Total Balance 720 1050 Intake, Blood 100 Product Intake, IV 600 470 Intake, Oral 120 480 Physical Exam General Appearance: Alert, Oriented X3, Cooperative, No Acute Distress Skin: No Rashes, No Breakdown, No Significant Lesion HEENT: Atraumatic, PERRLA, EOMI, Mucous Membr. moist/pink Neck: Supple, No JVD, No thryomegaly, +2 Carotid Pulse wo Bruit, No LAD Current Medications: Current Medications Sig/Yony Start time Last Medication Dose Route Stop Time Status Admin Acetaminophen 650 MG Q6 PRN 10/22 1200 AC 10/22 PO 2110 Acyclovir 400 MG BID 10/24 2200 DC PO 10/25 2159 Acyclovir 600 MG Q8H 10/24 1645 DC Dextrose/Water 100 ML IV Acyclovir 400 MG BID 10/24 1100 AC 10/25 PO 10/25 1059 0912 Amlodipine Besylate 10 MG DAILY 10/22 1141 AC 10/25 PO 0911 Atenolol 25 MG DAILY 10/22 1141 AC 10/25 PO 0912 Fluconazole 200 MG DAILY 10/25 1000 DC PO 10/26 0959 Fluconazole 200 MG DAILY 10/24 1100 AC 01/10 PO 10/25 1059 0911 Furosemide 20 MG QPM 10/22 2200 AC 10/24 PO 2146 Haloperidol 0.5 MG Q12P PRN 10/22 1300 AC 10/24 IM 0950 Insulin Aspart 0 TIDAC 10/22 1200 AC 10/23 SC 1717 Lidocaine 0 .STK-MED ONE 10/24 1537 DC .ROUTE Lorazepam 1 MG ONCE PRN 10/24 1345 AC 10/24 IV 1523 Lorazepam 0.5 MG Q6-PRN PRN 10/24 1015 AC 10/24 IV 1901 Lorazepam 0.5 MG ONCE ONE 10/24 1000 DC 10/24 IV 10/24 1001 0955 Melatonin 5 MG AT BEDTIME 10/22 2200 AC 10/24 PO 2146 Senna/Docusate Sodium 1 TAB AT BEDTIME PRN 10/22 1200 AC PO Sodium Chloride 1,000 ML Q13H 10/22 1300 AC 10/25 IV 0520 Trimethoprim/ 1 TAB 10/24 1000 AC Sulfamethoxazole PO 10/25 0959 Last 24 Hrs of Lab/Uriah Results Last 24 Hrs of Labs/Mics: Laboratory Tests 10/24/16 1555: CSF VDRL Pending 10/24/16 1555: CSF Glucose 63, CSF Total Protein 40 10/24/16 1555: Ref Lab Test Result Pending, Ref Lab Test Result Pending, CSF WBC 0, CSF RBC 0, CSF Comment , Herpes Simplex Source Pending, HSV I DNA PCR Pending, HSV II DNA PCR Pending Microbiology 10/24 155 [facility] S: AFB Culture with PCR Identification - RECD 10/24 155 [facility] S: AFB Smear Concentration - RECD 10/24 1555 C[facility] N S: Fungal Culture - RECD 10/24 1555 C[facility] N S: CSF Culture - RES 10/24 155 [facility] S: Gram Stain - RES Assessment/Plan Assessment: This is a 62-year-old man with past medical history of hypertension,multiple myeloma, hypoxemic respiratory failure(discovered at his oncologist's clinic 4 prior to admission), recent transfusion for anemia Hb of 2, congestive heart failure presented to the hospital with worsening of confusion for 10 days. He is on a prophylactic antibiotic regimen (Acyclovir, fluconazole and bactrim)as outpatient. Follows with oncologist, Dr. George. The patient has appointment with his oncologist for chemotherapy today at 2 PM. Patient and family like him to be discharged so that he can follow-up with his appointments. No further episodes of combative behavior or agitation reported. LP results were negative. Problem list/plan: #Altered mental status: * Delirium * No possible metabolic causes of AMS noted so far * HSV encephalitis less likely given negative LP results. * Empiric tx for HSV was discontinued. * F/u results for CSF HSV, VDRL, etc. #Pancytopenia: * WBC 1.7, Hb 7.2, Plt: 27 * most likely 2/2 MM * records from [facility] reviewed * Hem/onc consult appreciated. # Diabetes Mellitus * BG levels ranging 114-173 * NovoLog sliding scale low-dose 3 times a day before meals * Accu-Cheks 3 times a day before meals #Recent history of congestive heart failure * c/w lasix #DVT prophylaxis * Alps given thrombocytopenia #CODE STATUS * full code Problem List: 1. Full code status 2. Altered mental status 3. Multiple myeloma Pain Ratin Pain Location: NA Pain Goal: Remain pain free Pain Plan: NA Tomorrow's Labs & Rationales: None, to be discharged today. DVT/Prophylaxis: mechanical
[2016-10-25 08:00] VITALS: BP 132/60
[2016-10-25 08:30] VITALS: BP 132/60
[2016-10-25] MEDS ORDERED: ATIVAN0.5 M1 PO (09:03)
--- NOTE | 2016-10-25 09:05 | Patient Discharge Instructions ---
Discharge Instructions General Discharge Information You were seen/treated for: Altered mental status Special Instructions: -Please follow up with your PCP within a week of discharge. -Please see your oncologist, Dr. George today(you have appointment). -Please make an appointment to see neurologist, Dr. Pace within a week of discharge (referral provided). -Please return to the hospital if your symptoms not improve/worsen. Diet Continue normal diet: Yes Recommended Diet: Diabetic, Heart Healthy Activity Additional ACTIVITY Info: As tolerated. Acute Coronary Syndrome Inclusion Criteria At DC or during hospital stay patient has or had the following: ACS DIAGNOSIS No Discharge Core Measures Meds if any: Prescribed or Continued at Discharge Meds if any: NOT Prescribed or Continued at Discharge Congestive Heart Failure Inclusion Criteria At DC or during hospital stay patient has or had the following: CHF DIAGNOSIS No Discharge Core Measures Meds if any: Prescribed or Continued at Discharge Meds if any: NOT Prescribed or Continued at Discharge Cerebrovascular accident Inclusion Criteria At DC or during hospital stay patient has or had the following: CVA/TIA Diagnosis No Discharge Core Measures Meds if any: Prescribed or Continued at Discharge Meds if any: NOT Prescribed or Continued at Discharge Venous thromboembolism Inclusion Criteria VTE Diagnosis No VTE Type NONE VTE Confirmed by (Test) NONE Discharge Core Measures - Per Current guidelines, there needs to be overlap - treatment for the first 5 days of Warfarin therapy. - If discharged on Warfarin prior to 5 days of - overlap therapy, the patient will need to be - assessed for post discharge needs including - *Post discharge parental anticoagulation - *Warfarin and/or parental anticoagulation education - *Follow up date to check INR post discharge At least 5 days overlap therapy as Inpatient No Meds if any: Prescribed or Continued at Discharge Note: Overlap Therapy is Warfarin and Anticoagulant Meds if any: NOT Prescribed or Continued at Discharge
[2016-10-25 09:12] VITALS: BP 146/54
--- NOTE | 2016-10-25 09:45 | PN- Att Addend ---
Attending Addendum Attending Brief Note Patient seen and examined. Agree with resident's note. Patient feels completely fine. He had an uneventful night with no agitation or aggressive behavior. He is afebrile and his LP results have 0 white cells and 0 red cells. I spoke to the patient and patient's son at length. Patient is very keen on being discharged today as he has an oncology appointment with Dr. George at 2 PM today. He is very keen on restarting his chemotherapy for myeloma. I explained that we haven't drawn a CBC yet today but he and his son reassured me that Dr. George always does blood work before any kind of chemotherapy regimen is planned. Given that his MRI is completely negative, LP is negative, behavior is completely stable and he has chronically low counts (previous discharge summary from [place] reviewed where he was discharged on with anemia and thrombocytopenia and pancytopenia.), I think he is stable to leave. I explained to the son the need for neurology follow-up and this is likely dementia with delirium. And that he needs further workup and treatment for the same. Also discharged him with 10 tablets of Ativan 0.5 mg that they could use when necessary for agitated behavior. I also explained at length the effects of thrombocytopenia and anemia and gave him a copy of his CBC, MRI and LP results to show his oncologist today at 2 PM.
--- NOTE | 2016-10-25 22:58 | Discharge Summary ---
Visit Information Visit Dates Admission Date: 10/22/16 Discharge Date: 10/25/16 Hospital Course Course Attending Physician: IRMA DIAZ Primary Care Physician: AVANI ALBRIGHT MD Consulting Request: 1 Consulting Specialty: Hematology/Oncology Consulting Request: 2 Consulting Specialty: Neurology Hospital Course: This is a 62-year-old man with past medical history of hypertension, refractory IgA multiple myeloma (2011 ) previously treated with multiple regimen including AutoSCT (08/2012), VRD, Carfilzomib/RD, Alvaro/Barry/Dex, Daratumumab, DARLYN, Panobinostat/Alvaro/Dex, Farydak/Alvaro/Dex, and now on elotuzumab with lenalidomide ( last 10/04/2016) , ?steroid induced diabetes, hypoxemic respiratory failure( discovered at his oncologist's clinic 4 prior to admission), recent transfusion for anemia Hb of 2, congestive heart failure presented to the hospital with worsening of confusion for 10 days. His oncologist is Dr. George at [facility]. His symptoms started 12 days prior to admission when he was noted to be progressively lethargic. He was found to be anemic and hypoxemic and desaturated to the 70s when he presented to his oncologist for chemotherapy 4 prior to admission. On account of this he was transferred to [facility] emergency department where he was admitted and transfused with 2 units of blood. He was found to be in congestive heart failure with bilateral pulmonary edema and he was diuresed. Echocardiogram done showed ejection fraction of 60-65% with moderate diastolic dysfunction. His family stated that he was very confused as evidenced by his behaviours. Overnight he was opening all the drawers in his house and wandering around his house. He also tried to put his glasses into his wallet. He was speaking minimally and not able to carry on conversations as he normally does. He also was unable to operate his computer. However, he did not have slurred speech. He denied headaches, weakness of any part of his body or any facial asymmetry. He denied fevers, chills, dysuria, diarrhea. Reported loss of PO intake for the past 24 hours prior to hospital presentation. Of note, the patient was on a prophylactic antibiotic regimen of Acyclovir, fluconazole and bactrim. Vital signs on admission: Date Time Temp Pulse Resp B/P Pulse O2 O2 Flow FiO2 Ox Delivery Rate 10/22 0830 97.5 81 20 148/78 99 Room Air 10/22 0658 97.1 79 20 158/71 100 Room Air Pertinent physical exam at the time of admission: General Appearance Alert, No Acute Distress, oriented to person but not to time or place Skin No Rashes, No Breakdown HEENT PERRLA, EOMI Neck Supple, No JVD Lymphatic Cervical nl Cardiovascular Regular Rate, Normal S1, Normal S2, No Murmurs Lungs Clear to Auscultation, Normal Air Movement Abdomen Normal Bowel Sounds, Soft, No Tenderness, No Hepatospenomegaly Neurological Normal Gait, Normal Speech, Strength at 5/5 X4 Ext, Normal Tone, Sensation Intact, Cranial Nerves 3-12 NL, Reflexes 2+, Neck supple. Extremities +1 pedal edema Vascular Normal Pulses Pertinent Lab data on admission: 10/22/16 0910: Urine Opiates Screen < 100.00, Methadone Screen < 40, Barbiturate Screen < 60, Ur Phencyclidine Scrn < 6.00, Amphetamines Screen < 100, U Benzodiazepines Scrn < 85, Urine Cocaine Screen < 50, Urine Cannabis Screen < 5.00 10/22/16 0909: Urine Color YEL, Urine Clarity CLEAR, Urine pH 6.0, Ur Specific [place] 1.025, Urine Protein NEG, Urine Ketones TRACE H, Urine Nitrite NEG, Urine Bilirubin NEG, Urine Urobilinogen 0.2, Ur Leukocyte Esterase NEG, Ur Microscopic EXAM NOT REQUIRED, Urine Hemoglobin NEG, Urine Glucose NEG 10/22/16 0808: Lactic Acid 1.0 10/22/16 0808: Ammonia < 9 L, PT 13.7 H, INR 1.31 H, APTT 24 L 10/22/16 0716: Anion Gap 22 H, Estimated GFR > 60, BUN/Creatinine Ratio 52.5 H, Glucose 137 H, Calcium 9.0, Total Bilirubin 0.9, AST 40, ALT 176 H, Alkaline Phosphatase 65 , Troponin I 0.06, Total Protein 8.4 H, Albumin 3.2 L, Globulin 5.2 H, Albumin/Globulin Ratio 0.6 L, CBC w Diff MAN DIFF ORDERED, RBC 2.49 L, MCV 95.4 H, MCH 33.0 H, RDW 23.0 H, MPV 8.3, Gran % 56.1, Lymphocytes % 23.5, Monocytes % 16.5 H, Eosinophils % 3.4, Basophils % 0.5, Absolute Granulocytes 1.0 L, Segmented Neutrophils 55, Band Neutrophils 2, Absolute Lymphocytes 0.4 L, Lymphocytes 33, Monocytes 8, Absolute Monocytes 0.3, Absolute Eosinophils 0.1 , Absolute Basophils 0, Metamyelocytes 2 H, Nucleated RBCs 2 H, Platelet Estimate , Hypochromic-Microcytic 2+, Poikilocytosis 2+, Anisocytosis 1+, PUBS MCHC 34.6 Diagnostic Data EKG Results HR 74 bpm, QTC 520, LVH CXR Results Normally expanded lungs with no pulmonary edema Head CT No acute intracranial abnormality. The following problems were addressed during the course of his hospital stay: #Altered mental status: Admission DDx included Metabolic(no sourse found) vs delirum vs subtle cerebral infarct vs encephalitis. He was admitted to telemetry monitored service. Vital signs were monitored closely, frequent neuro checkes were performed. He passed bedside swallow evaluation. PT/OT evaluation were done. MRI head and MRA neck were unrevealing. Neurology was consulted who recommended UA, Cultures and LP. Case was discussed with ID who also agreed with LP. On morning of 10/24/16, the patient became agitated and agressive, requiring security to bring him back, he needed IM Haldol and IV Ativan, wrist restraints and [place]. His son was present at bedside who confirmed that this was completely different from what he normally was. He calmed down after IV Ativan and IM Haldol, at that time we made him talk to his outpatient oncologist, Dr. George over the phone then he agreed to stay. The patient underwent IR guided LP after receiving 2 units of platelets (given he was thrombocytopenic to 27;hem/onc was consulted) after which he was started on IV acyclovir as empiric HSV encephalitis treatment. LP results were sent for Gram stain, culture, glucose ,total protein, HSV PCR, cryptococcal antigen, AFB and VDRL. The next day, patient was completely feeling fine and had uneventful night without agitaiton or aggressive behavior. He was afebrile. LP results showing e 0 white cells and 0 red cells. IV acyclovir was discontinued. The patient was very keen on being discharged as he had appointment as outpatient with his oncologist, Dr. George at 2 PM same day to receive chemotherapy for Multiple Myeloma. It was explained to the patient and his son that CBC needs to be drawn. Son reassured us that Dr. George always does blood work before any kind of chemotherapy regimen is planned. Patient's behavior was completely stable; he has chronically low counts (previous discharge summary from [place] reviewed where he was discharged on with anemia and thrombocytopenia and pancytopenia) he was considered stable to leave. The need to closely follow up with Neurology for further evaluation was emphasized. He was discharged with 10 tablets of Ativan 0.5 mg that they could use when necessary for agitated behavior. The effects of thrombocytopenia and anemia was explained at length and he was given a copy of his CBC, MRI and LP results to show his oncologist today at 2 PM. Given negative metabolic, infection and CVA work up, some of his delirium symptoms was thought ot be related to recent ICU and hospitalization and . Paraneoplastic syndromes were also a concern. #Pancytopenia: Latest values on 10/24/16: WBC 1.7, Hb 7.2, Plt: 27. Remained stable during the course of patient's hospital stay. Records from [facility] reviewed. Hem/onc was consulted. NSAIDS were avoided given thrombocytopenia. # Diabetes Mellitus Blood glucose levels were monitored closely ranging 114-173. He was maintained on Diabetic diet, NovoLog sliding scale low-dose 3 times a day before meals. #Recent history of congestive heart failure Was maintained on Furosemide 20 MG PO QPM. #DVT prophylaxis Alps given thrombocytopenia #CODE STATUS Full code Allergies: Coded Allergies: NO KNOWN ALLERGIES (07/08/15) Pertinent Lab Results: Serum Lym Ab: negative. CSF: WBC 0, RBC 0, GLUCOSE 63, TOTAL PROTEIN 40. CSF negative for AFB, AFB cultures pending,CSF Fungus culture pending, SCF gram stain and cuture negative. VDRL, HSV 1 and 2 DNA, cryptococcal angitgen were all negative. Blood cultures negative. UA negative. Disposition Summary Disposition Principal Diagnosis: Altered mental status Additional Diagnosis: Pancytopenia Discharge Disposition: home or self care Discharge Instructions General Discharge Information Code Status: Full Code Patient's Diet: Cardiac/diabetes Patient's Activity: As tolerated Follow-Up Instructions/Appts: -Please follow up with your PCP within a week of discharge. -Please see your oncologist, Dr. George today(you have appointment). -Please make an appointment to see neurologist, Dr. Pace within a week of discharge (referral provided). -Please return to the hospital if your symptoms not improve/worsen. Medications at Discharge Discharge Medications: Continue taking these medications: Furosemide (Furosemide) 20 MG TABLET 1 Tablet ORAL TWICE DAILY Comments: Last Taken: 10/24/16 Time: 9:00 PM Lenalidomide (Revlimid) 10 MG CAPSULE 1 Capsule ORAL DAILY Comments: NOT GIVEN IN THE HOSPITAL Amlodipine Besylate (Amlodipine Besylate) 10 MG TABLET 1 Tablet ORAL DAILY Qty = 90 Comments: Last Taken: 10/25/16 Time: 9:15 AM Atenolol (Atenolol) 25 MG TABLET 1 Tablet ORAL DAILY Qty = 90 Comments: Last Taken: 10/25/16 Time: 9:15 AM Sulfamethoxazole/Trimethoprim (Sulfamethoxazole-Tmp Ds Tablet) 800 MG-160 MG TABLET 1 Tablet ORAL MONDAY, MONDAY AND MONDAY Qty = 12 Comments: NOT GIVEN IN THE HOSPITAL Fluconazole (Diflucan) 200 MG TABLET 1 Tablet ORAL DAILY Comments: Last Taken: 10/25/16 Time: 9:15 AM Metformin HCl (Metformin HCl) 500 MG TABLET 1 Tablet ORAL TWICE DAILY Qty = 180 Comments: NOT GIVEN IN THE HOSPITAL Acyclovir (Acyclovir) 400 MG TABLET 1 Tablet ORAL TWICE DAILY Qty = 180 Comments: Last Taken: 10/25/16 Time: 9:15 AM Start taking the following new medications: Lorazepam (Ativan) 0.5 MG TABLET 1 Tablet ORAL EVERY 8 HOURS as needed for Agitation Qty = 10 No Refills Comments: IV DOSE GIVEN ON 10/24/16 AT 7 PM Copies To: FAYE MONSIVAIS,TABITHA; EMELIA MONSIVAIS,JANETT Vicky
[2016-10-31 13:43] LABS: VDRL, CSF Nonreactive (Nonreactive)
== END 2016-10-25 10:02 | DRG 71 ==
LOC: ERH 06:46 → 1NO 08:48 → ERHI 08:48 → 1NO 12:43
PROVIDERS: Emergency Medicine; Internal Medicine; Student in an Organized Health Care Education/Training Program; ADMIT Hospitalist
PROC: 009U3ZX Drainage of Spinal Canal, Percutaneous Approach, Diagnostic (ICD-10-PCS; principal; 2016-10-24)
PROC: B01BZZZ Fluoroscopy of Spinal Cord (ICD-10-PCS; principal; 2016-10-24)
DX: G93.40 Encephalopathy, unspecified (principal); F05 Delirium due to known physiological condition; D61.818 Other pancytopenia; C90.00 Multiple myeloma not having achieved remission; F03.91 Unspecified dementia, unspecified severity, with behavioral disturbance; R41.82 Altered mental status, unspecified; E11.9 Type 2 diabetes mellitus without complications; D69.6 Thrombocytopenia, unspecified; R47.1 Dysarthria and anarthria; I10 Essential (primary) hypertension; Z87.891 Personal history of nicotine dependence; Z79.84 Long term (current) use of oral hypoglycemic drugs
CPT/HCPCS: 1NP; 1NSP; 70552; 70555; 86403; 86592; 87070; 87205; 87498; 87529; 36415; 70553; 77002; 80307; 81003; 82436; 87040; 88305; 93005; 93010; 97001-GP; 97161-GP; A9579; J1630; J1650; J2060; J7040; P9031